=== PATIENT | female | born 1945 | race Caucasian/White ===

== ENCOUNTER 2017-05-27 08:45 | Outpatient (CLI) | payer OTHER, MEDICARE, SELFPAY | END 2017-05-27 09:55 | disposition home or self-care (01) | PROVIDERS: Visit Provider Nurse Practitioner | DX: N18.3 Chronic kidney disease, stage 3 (moderate) (principal) | CPT/HCPCS: 96372; J0885 ==

== ENCOUNTER 2017-06-24 12:24 | Outpatient (CLI) | payer OTHER, MEDICARE, SELFPAY ==
[2017-06-24 12:42] VITALS: BMI 22.6
[2017-06-24 13:34] LABS: Basophils % 0.3 % (0.1-2.0); Eosinophils # 0.1 K/mm3 (0.0-0.4); Eosinophils % 3.2 % (0.1-12.0); Hematocrit 33.2 % (37.0-47.0); Lymphocytes # 0.8 K/mm3 (0.7-4.5); Lymphocytes % 18.6 K/mm3 (10-50); Mean Corpuscular Hemoglobin 29.8 pg (27.0-31.2); Mean Corpuscular Volume 90.1 fl (81-99); Mean Platelet Volume 8.6 fl (7.4-10.4); Monocytes # 0.2 K/mm3 (0.1-1.0); Monocytes % 5.4 % (1.7-9.3); Neutrophils % 72.6 % (37.0-80.0); Platelet Count 225 K/mm3 (142-424); Red Blood Count 3.68 M/mm3 (4.20-5.40); Red Cell Distribution Width 13.2 % (11.5-17.5); White Blood Count 4.2 K/mm3 (4.8-10.8)
[2017-06-24 14:00] VITALS: BP 128/70; PULSE 66; RESP 20; TEMP 36.4; O2SAT 98
== END 2017-06-24 14:15 | disposition home or self-care (01) ==
PROVIDERS: Visit Provider Internal Medicine
DX: N18.3 Chronic kidney disease, stage 3 (moderate) (principal); D63.1 Anemia in chronic kidney disease
CPT/HCPCS: 85025; 96372; J0885

== ENCOUNTER → 2018-01-16 11:56 | Outpatient (CLI) | payer OTHER, MEDICARE, SELFPAY ==
--- NOTE | 2018-01-16 12:07 | XR_ITS ---
XR chest 2V HISTORY: Short of breath ITS.REASON: ASTHMA ORDERING PHYSICIAN: Artie Elias MD PATIENT AGE: 72 years Technique: PA and lateral chest COMPARISON: 12/28/2016 FINDINGS: ... Bilateral pleural effusions evident most evident on the left. Most generous blunting and meniscus is seen at the left CP angle, and obscuring the left hemidiaphragm. . Scant blunting right CP angle and posterior sulcus.Minimal fluid outlines fissures on the lateral view as well Mild basilar atelectasis most notable left base. No discrete focal pneumonia The mid and upper lung chanel are clear. Heart appears mildly enlarged. Mild cardiomegaly . Pulmonary vascularity appears normal to upper normal particularly on the right . regan and mediastinal structures satisfactory. Chest wall appears intact IMPRESSION:...... 1 Small Bilateral pleural effusions, pleural fluid most evident towards left base obscuring left hemidiaphragm . 2 Right basilar atelectasis left greater than right. 3. Mild cardiomegaly slight more evident than last year CXR.
== END ==
PROVIDERS: PCP Internal Medicine Adolescent Medicine; Visit Provider Internal Medicine Adolescent Medicine
DX: J45.20 Mild intermittent asthma, uncomplicated (principal)
CPT/HCPCS: 71046

== ENCOUNTER 2018-01-23 13:36 | Outpatient (CLI) | payer OTHER, MEDICARE, SELFPAY ==
[2018-01-23 14:17] LABS: Basophils % 0.4 % (0.1-2.0); Eosinophils # 0.1 K/mm3 (0.0-0.4); Eosinophils % 1.9 % (0.1-12.0); Hematocrit 30.8 % (37.0-47.0); Hemoglobin 10.2 g/dL (12.2-16.2); Lymphocytes # 0.7 K/mm3 (0.7-4.5); Lymphocytes % 15.7 K/mm3 (10-50); Mean Corpuscular HGB Conc 33.1 g/dL (31.8-35.4); Mean Corpuscular Volume 90.8 fl (81-99); Mean Platelet Volume 7.7 fl (7.4-10.4); Monocytes # 0.2 K/mm3 (0.1-1.0); Monocytes % 4.2 % (1.7-9.3); Neutrophils # 3.6 K/mm3 (1.8-7.8); Neutrophils % 77.8 % (37.0-80.0); Platelet Count 294 K/mm3 (142-424); Red Blood Count 3.39 M/mm3 (4.20-5.40); Red Cell Distribution Width 13.5 % (11.5-17.5); White Blood Count 4.6 K/mm3 (4.8-10.8)
[2018-01-23 15:16] LABS: Alanine Aminotransferase 19 U/L (12-78); Albumin/Globulin Ratio 0.7 (1.1-1.8); Alkaline Phosphatase 114 U/L (46-116); Anion Gap 15.2 mEq/L (5-15); Aspartate Amino Transferase 19 U/L (15-37); Bilirubin,Total 0.3 mg/dL (0.2-1.0); Blood Urea Nitrogen 15 mg/dL (7-18); Calcium 8.4 mg/dL (8.5-10.1); Carbon Dioxide 26 mmol/L (21.0-32.0); Chloride 100 mmol/L (98-107); Creatinine,Serum 1.28 mg/dL (0.55-1.02); Estimated Glomerular Filt Rate 41 ml/min (>60); GFR (African American) 50 ML/MIN (>60); Globulin 4.4 gm/dl (1.3-3.2); Glucose 165 mg/dL (74-106); Magnesium 1.7 mg/dL (1.4-2.2); Potassium 3.2 mmoL/L (3.5-5.1); Sodium 138 mmol/L (136-145); Total Protein,Serum 7.4 gm/dL (6.4-8.2)
[2018-01-23 16:11] VITALS: BP 152/60; PULSE 74; RESP 18; TEMP 36.6; O2SAT 100
[2018-01-23 16:41] VITALS: BP 149/64; PULSE 76; RESP 18; O2SAT 99
[2018-01-23 17:19] VITALS: BP 140/69; PULSE 79; RESP 18; O2SAT 99
== END 2018-01-23 17:23 | disposition home or self-care (01) ==
LOC: LAB 13:36 → INF 15:46
PROVIDERS: PCP Internal Medicine Adolescent Medicine; Visit Provider Nurse Practitioner Family
DX: R53.83 Other fatigue (principal); R53.81 Other malaise; E87.6 Hypokalemia
CPT/HCPCS: 36415; 80053; 83735; 85025; 96360

== ENCOUNTER → 2018-01-26 13:24 | Outpatient (CLI) | payer OTHER, MEDICARE, SELFPAY ==
[2018-01-26 14:11] LABS: Anion Gap 13.4 mEq/L (5-15); Blood Urea Nitrogen 18 mg/dL (7-18); Calcium 8.5 mg/dL (8.5-10.1); Carbon Dioxide 26 mmol/L (21.0-32.0); Chloride 101 mmol/L (98-107); Creatinine,Serum 1.17 mg/dL (0.55-1.02); Estimated Glomerular Filt Rate 46 ml/min (>60); GFR (African American) 55 ML/MIN (>60); Glucose 108 mg/dL (74-106); Potassium 3.4 mmoL/L (3.5-5.1); Sodium 137 mmol/L (136-145)
== END ==
PROVIDERS: PCP Nurse Practitioner Family; Visit Provider Nurse Practitioner Family
DX: R10.11 Right upper quadrant pain (principal)
CPT/HCPCS: 36415; 80048

== ENCOUNTER → 2018-03-08 12:50 | Outpatient (CLI) | payer OTHER, MEDICARE, SELFPAY ==
--- NOTE | 2018-03-08 12:53 | MR_ITS ---
MR angio neck wo con HISTORY: ITS.REASON: STROKE, TIA ORDERING PHYSICIAN: RANDALL Da Silva PATIENT AGE: 72 years Comparison: None TECHNIQUE: Delayed images obtained without contrast. There is a moderate degree of motion artifact which does decrease the quality of the exam. The carotids and vertebrals are patent. No significant stenotic lesions apparent. Vertebral arteries are patent and have an unremarkable appearance. IMPRESSION: No significant stenotic lesions apparent
--- NOTE | 2018-03-08 12:53 | MR_ITS ---
MR head/brain wo con HISTORY: Left-sided arm weakness, follow-up stroke, follow-up head CT of 02/16/2018 ITS.REASON: STROKE, TIA ORDERING PHYSICIAN: RANDALL Da Silva PATIENT AGE: 72 years Comparison: None TECHNIQUE: Standard multiplanar multiecho sequences are performed without contrast. FINDINGS: No midline shift, mass effect, intracranial hemorrhage, or hydrocephalus is evident. No evidence of acute infarction. There is atrophy with mild prominence of the ventricles consistent with brain volume loss. Old lacunar infarctions are present in the right thalamus, right basal ganglia, and left superior cerebellum. There are scattered periventricular and subcortical T2 white matter hyperintensities consistent with ischemic gliotic change from microangiopathy. These do not demonstrate restricted diffusion. The cerebellopontine angles, cerebellum, and brainstem are unremarkable. There are bilateral mastoid effusions. No sinus air-fluid level. The pituitary and optic chiasm have an unremarkable appearance. No cerebellar ectopia. IMPRESSION: 1. No acute finding. 2. Atrophy with chronic ischemic changes with old lacunar infarctions. No acute infarction apparent 3. Bilateral mastoid effusions
--- NOTE | 2018-03-08 12:53 | MR_ITS ---
MR angio head wo con HISTORY: Recent stroke, left-sided arm weakness ITS.REASON: STROKE, TIA ORDERING PHYSICIAN: RANDALL Da Silva PATIENT AGE: 72 years Comparison: None TECHNIQUE: 3-D [id number] images obtained without contrast. Multi slab images and mip reviewed FINDINGS: There is some minimal protrusion along the medial aspect of the cavernous portion of the left internal carotid artery suggesting a small aneurysm at this area probably due to a atheromatous aneurysm or even a ulcerated plaque. Similar finding is also noted involving the medial aspect of the cavernous portion of the right internal carotid artery. These areas measure approximately 2 mm. No other aneurysm, arteriovenous malformation, or major intracranial occlusive process apparent. Single shot MRV image shows no evidence of sagittal sinus thrombosis. There is mild degree of motion artifact which does somewhat obscure fine detail. IMPRESSION: 1. Small focal areas of protrusion involving the medial aspect of both cavernous portions of the internal carotid arteries suggesting small atheromatous aneurysms or ulcerations/ulcerative plaques. 2. Otherwise negative.
== END ==
PROVIDERS: Family Provider Internal Medicine Adolescent Medicine; PCP Nurse Practitioner Family; Visit Provider Physician Assistant
DX: I63.9 Cerebral infarction, unspecified (principal); G45.9 Transient cerebral ischemic attack, unspecified
CPT/HCPCS: 70544; 70547; 70551

== ENCOUNTER → 2018-03-15 09:43 | Outpatient (CLI) | payer OTHER, MEDICARE, SELFPAY ==
--- NOTE | 2018-03-15 09:46 | FL_ITS ---
MO upper GI small bowel Ordering Physician: Leroy Price MD Patient Age: 72 years: Female HISTORY: ITS.REASON: anemia HISTORY of bleeding ulcer 3 months abdominal pain. TECHNIQUE: Air-contrast UGI performed by Dr. Rodriguez. 3 minutes 10 seconds fluoroscopy time Followed bySmall bowel follow-throug COMPARISON : No recent relevant studies There is a May 2007 CT abdomen UPPER GI Cervical esophagus. Unremarkable. Normal swallowing. Upper thoracic esophagus unremarkable. With patient drinking in the right deep decubitus position, with Valsalva there is a small transient Sliding Hiatal Hernia observed & demonstrated under fluoroscopy. Otherwise the stomach appears overall satisfactory. Minimal rugal full pattern slightly smooth appearance the stomach proximal body. Likely normal but, conceivably could reflect atrophic gastritis.. There is a ovoid calcification to the left of the spine & projected chest above the mid stomach. This is a 16 mm round dense calcification involves ectatic and possibly a small aneurysmal dilated area of the splenic artery. This is seen just posterior posterior to the mid body of the stomach on multiple UGI images. It was seen on the as400 consultant film; and can be confirmed dense calcified area of dilated splenic artery on prior CT 2007. Other splenic artery calcifications are seen along the course of splenic artery continuing more peripherally. The splenic artery artery is more normal in caliber in these latter regions. The pylorus. Duodenum bulb appear normal. The duodenal bulb smooth & distensible with no ulcer niche or spasm Nor filling defect. Duodenal loop appears normal SMALL BOWEL FOLLOW-THROUGH is normal Small bowel is normal in caliber. Normal mucosal pattern. Terminal ileum appears satisfactory. No bowel dilatation. Or separation. ------- IMPRESSION 1. UGI Findings: ... Small transient sliding hiatal hernia. ..... No ulcer or lesion evident at stomach, pylorus nor duodenum .... Minimal rugal fold pattern, fairly smooth appearance proximal body stomach, is most likely normal. . Conceivably could reflect Atrophic gastritis but unlikely with overall appearance... 4....Small Bowel FollowThrough-Normal 5.... 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 This is seen in 2007 and is only slightly larger ...
== END ==
PROVIDERS: Family Provider Internal Medicine Adolescent Medicine; PCP Nurse Practitioner Family; Visit Provider Surgery
DX: D64.9 Anemia, unspecified (principal)
CPT/HCPCS: 74245

== ENCOUNTER 2018-09-29 15:10 | Inpatient (IN) ==
--- NOTE | 2018-09-29 15:20 | Emergency Department Note ---
ED Disposition Clinical Impression: Bandemia, Elevated troponin, Retroperitoneal mass Anemia Qualifiers: Anemia type: unspecified type Qualified Code(s): D64.9 - Anemia, unspecified Disposition: Admitted As Inpatient Condition on Discharge: Serious - Critical Care Critical Care Time: No Attestation: On 09/29/18, the high probability of a clinically significant, sudden or life threatening deterioration of the following system(s) required my full and direct attention, intervention and personal management. The time I documented below is in addition to time spent performing reported procedures but includes the following listed in this critical care notation. Medical Decision Making - Jalen Inquiry Pt receiving controlled substance: No Vital Signs: 09/29/18 15:10 09/29/18 15:47 09/29/18 17:24 Temperature 98.0 F Temperature Source Oral Pulse Rate [Right Brachial] 76 64 63 Respiratory Rate 18 Blood Pressure [Right Arm] 129/70 129/64 136/69 Blood Pressure Mean [Right Arm] 89 85 91 Blood Pressure Source [Right Arm] Automatic Cuff Blood Pressure Position [Right Arm] Sitting 02 Sat by Pulse Oximetry 99 98 100 Oxygen Delivery Method Room Air 09/29/18 18:00 Temperature Temperature Source Pulse Rate [Right Brachial] 60 Respiratory Rate Blood Pressure [Right Arm] 112/52 L Blood Pressure Mean [Right Arm] 72 Blood Pressure Source [Right Arm] Blood Pressure Position [Right Arm] 02 Sat by Pulse Oximetry 99 Oxygen Delivery Method - Lab Data Lab Results 09/29/18 15:14: Urine Color Yellow, Urine Appearance Clear, Urine pH 5.5, Ur Specific [place] 1.020, Urine Protein 2+, Urine Glucose (UA) Negative, Urine Ketones Negative, Urine Blood Negative, Urine Nitrate Negative, Urine Bilirubin Negative, Urine Urobilinogen 1.0, Ur Leukocyte Esterase 1+ A, Urine WBC 3-5, Urine Bacteria Trace 09/29/18 16:37: WBC 15.1 H, RBC 2.41 L, Hgb 6.9 L*, Hct 21.6 L*, MCV 89.5, MCH 28.5, MCHC 31.8, RDW 14.9, Plt Count 253, MPV 8.8, Neut % (Auto) 90.1 H, Lymph % (Auto) 5.1 L, Quay % (Auto) 4.6, Eos % (Auto) 0.0 L, Baso % (Auto) 0.1, Neut # (Auto) 13.6 H, Lymph # (Auto) 0.8, Quay # (Auto) 0.7, Eos # (Auto) 0.0, Baso # (Auto) 0.0, Total Counted 100, Neutrophils % (Manual) 67, Band Neutrophils % 29.0 H, Lymphocytes % (Manual) 3 L, Monocytes % (Manual) 1 L, Platelet Estimate Normal, RBC Morphology Normal 09/29/18 16:37: Sodium 132 L, Potassium 3.7, Chloride 100, Carbon Dioxide 24, Anion Gap 11.7, BUN 38 H, Creatinine 0.87, Estimated Creat Clear 37, Estimated GFR 64, Est GFR ( Amer) 78, Glucose 145 H, Calcium 8.3 L, Total Bilirubin 0.2, AST 31, ALT 14, Alkaline Phosphatase 196 H, Troponin I 0.10 H, Total Protein 6.3 L, Albumin 1.2 L, Globulin 5.1 H, Albumin/Globulin Ratio 0.2 L 09/29/18 16:37: Lipase 36 L, Digoxin 1.60 09/29/18 16:37: Lactate 1.0 09/29/18 17:10: Stool Occult Blood Negative Result diagrams: 09/29/18 16:37 09/29/18 16:37 Orders (Tests/Meds): ED MEDICATIONS Generic Name Dose Route Start Last Admin Trade Name Freq PRN Reason Stop Dose Admin Ertapenem 1 gm/ Sodium 50 mls @ 100 mls/hr 09/29/18 18:45 Chloride IV 10/13/18 18:44 Q24H JERILYN Protocol Sodium Chloride 1,000 mls @ 50 mls/hr 09/29/18 18:45 Sod Chlor 0.9% 1000ml Bag IV 10/29/18 18:44 .Q20H JERILYN ORDERS Category Date Time Status Urine Culture Stat Micro 09/29/18 15:14 Received - Radiology Data #1 Image(s): Chest Image Reviewed: Yes I have reviewed radiologist's interpretation Preliminary Findings: Normal/NAD - CT Data CT Scan: Head, Abdomen, Pelvis Time Received: 16:[address] Reviewed: Yes: I have viewed the radiologist's interpretation Findings Narrative: Head: Negative. Abdomen/Pelvis: IMPRESSION: 1. Small bilateral pleural effusions. 2. Left hydronephrosis and mild dilatation of the proximal left ureter. No ureteral calculus evident. This could be related to prior obstruction. 3. There is a retroperitoneal soft tissue mass measuring 5.9 x 3.3 x 6.5 cm consistent with adenopathy. This is displacing the abdominal aorta anteriorly.. This is slightly eccentric toward the left and glands imperceptibly with the psoas muscle anteriorly on the left. A contained retroperitoneal hemorrhage or aortic aneurysm is felt to be less likely. Certainly, a repeat study with IV contrast would the knee dated if biopsy is contemplated 4. Moderate wedge compression changes of T11 age indeterminate Dictated By: Micha Cox MD Signed By: <Electronically signed by Micha Cox MD in OV> 09/29/18 [id number] - ECG Data Tracing #1 EKG interpreted by Hunter Ley MD: Rhythm: sinus Rate: 64 Lyle: normal Ectopy: none Conduction: Nonspecific intraventricular conduction delay ST Segment Changes: Nonspecific T Wave Changes: Nonspecific Q Waves: none Prior electrocardiagrams reviewed. No change from prior tracings. - Physician Consults Physician Consulted: Austin Elias Time: 18:30 Reason -: Admission Comment/Response: Agrees to admit the patient to the hospital. We discussed the patient's clinical information, including history, exam, laboratory and radiology results and ED course. Per hospital procedure, I will write temporary bridge inpatient orders on the patient. Specific orders requested by the admitting physician: Transfuse 2 units packed red blood cells, normal saline at 50 cc/h, Invanz Medical Decision Narrative: Records reviewed. Seen by me 06/06/2018 for stroke symptoms. Treated with TPA and transferred to [facility]. Eventually ultimately diagnosed as seizure rather than stroke. Also had a fever while in the hospital. Records indicate that she refused lumbar puncture, but family says that lumbar puncture was attempted twice. She was eventually discharged to home. Family states she was admitted to [facility] after that after being seen here in a physician's office and being diagnosed with atrial fibrillation. Family says that she also had a lumbar puncture performed while at [facility] that was normal. She was started on digoxin. She was also started on Aricept while in [place] for possible early Alzheimer's disease. Family feels that she has declined since starting these medications. 5:15 PM: Discussed patient's anemia with family. She has a history of anemia, had to have a blood transfusion once about 6 to 7 months ago. Has had a work-up including upper and lower endoscopy in approximately February of last year. No cause for anemia was found. On review of records from the [facility] on the portal, she was seen to have anemia when she was in the hospital there with a hemoglobin in the sevens. She also had an elevated troponin but it did not rise further on her serial enzymes. Also noted that she was treated with vancomycin and meropenem for suspected infection and apparently tolerated these antibiotics well. General Adult HPI - General Chief complaint: Weakness Stated complaint: failure to thrive Time Seen by Provider: 09/29/18 15:20 Mode of Arrival: EMS Limitations: No Limitations Description of Symptoms (Recalled from ER Triage Doc. by RN): failure to thrive per family statement to ems; pt is poor historian , no family present - History of Present Illness HPI narrative: Brought in by ambulance. Reported altered mental status. Initially family is not here and patient is unable to give history. However, family arrived during my evaluation. They state that the patient was released from [facility] in [place] 3 days ago. She had been there for rehabilitation after being hospitalized at [facility], where she had been sent for atrial fibrillation. They state that the entire time she was at [facility] she would not eat by herself and was weak and losing weight. When she arrived home 3 days ago, the first day she did well, was up walking with a walker with assistance. Yesterday she more or less laid around, but was eating. Today she would not eat, would open her eyes, but would not verbally respond. She was supposed to have a doctor's visit with Dr. Elias today at [facility], but there was no way they could get her there, so they called the office and they were instructed to have her brought to the emergency room. Family also reports that she fell 3 times while she was in [place]. She is complained of pain in her lower abdominal and pelvic area since then. - Related Data Home Medications Medication Instructions Recorded Confirmed cholecalciferol (vitamin D3) 1,000 1,000 unit PO ONCE 06/06/17 09/29/18 unit capsule Aspirin [Aspirin 81mg EC Tab] 81 mg PO DAILY 01/23/18 09/29/18 potassium chloride ER 20 mEq 20 meq PO DAILY 02/01/18 09/29/18 tablet,extended release(part/cryst) carvedilol 25 mg tablet 12.5 mg PO BID 03/22/18 09/29/18 Atorvastatin Calcium [Atorvastatin 40 mg PO DAILY 06/25/18 09/29/18 40mg Tab] Multivitamin [Multi-Day Vitamins] 1 each PO DAILY 06/25/18 09/29/18 levETIRAcetam [Keppra Xr] 750 mg PO BID 06/25/18 09/29/18 Allergies Allergy/AdvReac Type Severity Reaction Status Date / Time valsartan Allergy Severe Difficulty Verified 03/22/18 13:43 Breathing acyclovir [ACYCLOVIR] Allergy Unknown Verified 03/22/18 13:43 aliskiren [From TEKTURNA] Allergy Unknown Verified 03/22/18 13:43 amlodipine [From NORVASC] Allergy Unknown Verified 03/22/18 13:43 amoxicillin [AMOXICILLIN] Allergy Unknown Verified 03/22/18 13:43 aspirin [ASPIRIN] Allergy Unknown Verified 03/22/18 13:43 azithromycin [From ZITHROMAX] Allergy Unknown Verified 03/22/18 13:43 ceftriaxone [From ROCEPHIN] Allergy Unknown Verified 03/22/18 13:43 cephalexin [CEPHALEXIN] Allergy Unknown Verified 03/22/18 13:43 codeine [CODEINE] Allergy Unknown Verified 03/22/18 13:43 doxycycline [DOXYCYCLINE] Allergy Unknown Verified 03/22/18 13:43 escitalopram [From LEXAPRO] Allergy Unknown Verified 03/22/18 13:43 gemifloxacin [From FACTIVE] Allergy Unknown Verified 03/22/18 13:43 isradipine [From DYNACIRC] Allergy Unknown Verified 03/22/18 13:43 levofloxacin [From LEVAQUIN] Allergy Unknown Verified 03/22/18 13:43 lisinopril [LISINOPRIL] Allergy Unknown Verified 03/22/18 13:43 nebivolol [From BYSTOLIC] Allergy Unknown Verified 03/22/18 13:43 olmesartan [From BENICAR] Allergy Unknown Verified 03/22/18 13:43 Penicillins [PENICILLINS] Allergy Unknown Verified 03/22/18 13:43 pentazocine Allergy Unknown Verified 03/22/18 13:43 [From [employer]WIN [employer]] ramipril [From ALTACE] Allergy Unknown Verified 03/22/18 13:43 simvastatin [SIMVASTATIN] Allergy Unknown Verified 03/22/18 13:43 sulfamethoxazole Allergy Unknown Verified 03/22/18 13:43 [From SEPTRA] trimethoprim [From SEPTRA] Allergy Unknown Verified 03/22/18 13:43 verapamil [From VERELAN] Allergy Unknown Verified 03/22/18 13:43 zolmitriptan [From ZOMIG] Allergy Unknown Verified 03/22/18 13:43 atorvastatin [ATORVASTATIN] AdvReac Unknown MYALGIA Verified 03/22/18 13:43 ALLEREX DF Allergy Intermediate I-HIVES Uncoded 03/22/18 13:43 [facility] History - Hepatitis A Screen Drug use history?: No High risk sexual behaviors?: No History of sexually transmitted infection?: No Currently employed?: No Childcare worker?: No Do you have indoor plumbing?: Yes Do you have electricity?: Yes Attestation statement:: This patient has been screened for Hepatitis A risk factors. I have reviewed the patient's past medical history: Yes Medical History: Reports:: Asthma, Congestive Heart Failure, Coronary Artery Disease, Hypertension, Lung Disease, Myocardial Infarction, Transient Ischemic Attacks (TIA) Denies:: Anxiety, Cancer, Depression, Diabetes Mellitus Type 1, Diabetes Mellitus Type 2, Internal Pacemaker, MRSA, Seizures Other Medical History: Reports: Anemia, Arthritis Other Surgeries: Yes: Coronary Stent, Diagnostic Lap, EGD, Hysterectomy-Total, Tubal Ligation, Other. No: Pacemaker Amputation: No Fractures: No - Social History Educational Level: Completed High School Smoking Status: Unknown if ever smoked Alcohol Intake: never Alcohol Intake Frequency:: other Substance Use Type: denies use Occupational Status: employed Housing: house Household Members: none - Psychiatric History Expresses thoughts of harming self/others: None Suicide Plan Description: No Plan Pschychiatric History:: Denies:: Anxiety, Attention Deficit Disorder, Bipolar Disorder, Depression, Eating Disorder, Post Traumatic Stress Disorder, Suicide Attempt, Psychiatric Treatment, Schizophrenia Family Hx:: Hypertension, Heart Attack ROS Obtained: Yes unobtainable due to mental status Physical Exam - General General appearance: other (Lays with eyes closed, but opens eyes when spoken to. Mouths a few words in response to questions. Follows commands.) - Head Head exam: atraumatic, normocephalic - Eye Eye exam: Present: normal appearance, PERRL, EOMI - ENT ENT exam: Present: mucous membranes moist - Neck Neck exam: Present: normal inspection, trachea midline. Absent: meningismus - Chest Chest inspection: Present: normal inspection, symmetric chest wall rise - Respiratory Respiratory exam: Present: normal lung sounds bilaterally. Absent: respiratory distress - Cardiovascular Cardiovascular exam: Present: regular rate, normal rhythm, normal heart sounds - Abdominal Exam Abdominal exam: Present: soft, tenderness. Absent: distention, guarding Abdominal tenderness: Present: diffuse - Rectal Exam Rectal exam: Present: normal inspection, normal rectal tone. Absent: black stoo l, bloody stool, fecal impaction, mass - Extremities Exam Extremities exam: Present: normal inspection, full ROM - Neurological Exam Neurological exam: Present: CN II-XII intact. Absent: motor sensory deficit - Psychiatric Psychiatric exam: Present: flat affect - Skin Skin exam: Present: warm, dry
[2018-09-29 15:42] LABS: Microscopic, Urine URINE MICROSCOPIC (MICROSCOPIC)
[2018-09-29 15:45] LABS: Appearance,Urine CLEAR (Clear); Bilirubin,Urine Negative (Negative); Blood, Urine Negative (Negative); Color,Urine YELLOW (Yellow); Glucose,Urine (UA) Negative (Negative); Ketones,Urine Negative (Negative); Leukocyte Esterase,Urine 1+ (Negative); PH,Urine 5.5 (5.0-8.5); Protein,Urine 2+ (Negative)
[2018-09-29 16:02] LABS: Bacteria,Urine Trace /lpf
[2018-09-29 17:03] LABS: Basophils % 0.1 % (0.1-2.0); Lymphocytes # 0.8 K/mm3 (0.7-4.5); Lymphocytes % 5.1 % (10-50); Mean Corpuscular HGB Conc 31.8 g/dL (31.8-35.4); Mean Corpuscular Hemoglobin 28.5 pg (27.0-31.2); Mean Corpuscular Volume 89.5 fl (81-99); Mean Platelet Volume 8.8 fl (7.4-10.4); Monocytes # 0.7 K/mm3 (0.1-1.0); Monocytes % 4.6 % (1.7-9.3); Neutrophils # 13.6 K/mm3 (1.8-7.8); Neutrophils % 90.1 % (37.0-80.0); Platelet Count 253 K/mm3 (142-424); Red Blood Count 2.41 M/mm3 (4.20-5.40); Red Cell Distribution Width 14.9 % (11.5-17.5); White Blood Count 15.1 K/mm3 (4.8-10.8)
[2018-09-29 17:07] LABS: Hematocrit 21.6 % (37.0-47.0); Hemoglobin 6.9 g/dL (12.2-16.2)
[2018-09-29 17:18] LABS: Lymphocytes % 3 % (10-50); Monocytes % 1 % (2-9); Neutrophils % 67 % (42-76); RBC Morphology Normal; Total Cells Counted 100
[2018-09-29 17:20] LABS: Albumin Level 1.2 gm/dL (3.4-5.0); Albumin/Globulin Ratio 0.2 (1.1-1.8); Anion Gap 11.7 mEq/L (5-15); Bilirubin,Total 0.2 mg/dL (0.2-1.0); Calcium 8.3 mg/dL (8.5-10.1); Globulin 5.1 gm/dl (1.3-3.2); Potassium 3.7 mmoL/L (3.5-5.1); Total Protein,Serum 6.3 gm/dL (6.4-8.2)
[2018-09-29 17:26] LABS: Digoxin 1.6 ng/mL (0.90-2.00)
[2018-09-29 23:54] LABS: ABG Base Excess -7.5 mmol/L (-2.4-2.3); ABG Oxygen Saturation 99 % (90-100); ABG PH 7.54 mmol/L (7.35-7.45); ABG PO2 349.4 mmhg (80-100); ABG TCO2 15.6 mmhg (23-27); Oxygen 100% NRB %
[2018-09-29 23:55] LABS: ABG PCO2 17.9 mmhg (35.0-45.0)
[2018-09-30 00:06] LABS: Basophils % 0.1 % (0.1-2.0); Eosinophils % 0.1 % (0.1-12.0); Lymphocytes # 2.1 K/mm3 (0.7-4.5); Lymphocytes % 10.6 % (10-50); Mean Corpuscular HGB Conc 32.1 g/dL (31.8-35.4); Mean Corpuscular Hemoglobin 28.2 pg (27.0-31.2); Mean Corpuscular Volume 87.7 fl (81-99); Mean Platelet Volume 8.3 fl (7.4-10.4); Monocytes # 0.7 K/mm3 (0.1-1.0); Monocytes % 3.3 % (1.7-9.3); Neutrophils # 16.9 K/mm3 (1.8-7.8); Neutrophils % 85.9 % (37.0-80.0); Platelet Count 254 K/mm3 (142-424); Red Blood Count 2.92 M/mm3 (4.20-5.40); Red Cell Distribution Width 16.6 % (11.5-17.5); White Blood Count 19.7 K/mm3 (4.8-10.8)
[2018-09-30 00:08] LABS: Hematocrit 25.6 % (37.0-47.0); Hemoglobin 8.2 g/dL (12.2-16.2)
[2018-09-30 00:09] LABS: Anion Gap 15.5 mEq/L (5-15); Calcium 8.3 mg/dL (8.5-10.1); Potassium 4.5 mmoL/L (3.5-5.1)
[2018-09-30 01:32] LABS: ABG Base Excess -14.8 mmol/L (-2.4-2.3); ABG HCO3 9.7 mmhg (22.0-26.0); ABG Oxygen Saturation 99 % (90-100); ABG PH 7.42 mmol/L (7.35-7.45); ABG PO2 168.6 mmhg (80-100); ABG TCO2 10.2 mmhg (23-27)
[2018-09-30 01:40] LABS: Oxygen 35% VENI MASK %
[2018-09-30 01:41] LABS: ABG PCO2 15.5 mmhg (35.0-45.0)
--- NOTE | 2018-09-30 01:46 | History & Physical Report ---
*Admission Date: 09/29/18 *Chief complaint: Weakness *History of present illness: 72-year-old female with history of strokes, congestive heart failure, atrial fibrillation was brought to the emergency department by family on the evening of September 29 due to gradual functional decline over the preceding 48 hours. Patient had recently returned home from a 3-week stay at [facility] after a one-week hospital stay at [facility]. Patient returned home September 27 and daughter reports that over the following 2 days patient's physical status gradually declined to the point where she had difficulty communicating, was very weak and had no appetite. The daughter contacted Dr. Lyle's office who recommended the patient go to [facility] where she had recently been hospitalized. However, the family was unable to physically move the patient so EMS was called and the patient was brought to [facility]. In the emergency department patient was found to have an elevated white blood cell count with bandemia. Urine was mildly abnormal. Patient had not had any signs of infection such as fevers, chills, cough. Patient was also found to be anemic with a hemoglobin of 6.9. Decision was made to admit the patient for transfusion of packed red blood cells, and IV antibiotics. Patient was admitted and started on Invanz intravenously. She received a unit of packed red blood cells. In between units of packed red blood cells when patient was being given a dose of Lasix due to basilar crackles that had developed patient became nonresponsive. A rapid response read was called. Patient had developed agonal breathing he would not respond to tactile or verbal stimulus or commands. She became hypotensive. Patient was started on Levophed and large-volume fluids. Over the course of approximately 45 minutes the patient's blood pressure channing, breathing became more comfortable, and patient seemed to become a little more alert although remained noncommunicative. Family was at now at bedside. The patient's daughter gave me additional information a bout the patient's health over the last 6 months. She has been admitted at the [facility] on at least 2 occasions for strokelike symptoms. I have reviewed ER notes from this hospital associated with those transfers. Apparently during 1 of the hospitalizations at the [facility] it was felt like she may be having "silent seizures" as opposed to strokes. She was started on Keppra and the patient is apparently been weaned from Keppra over these last few months. However, during the recent hospitalization at [facility] the daughter states that they were told that the patient has not been having seizures but is likely having frequent and recurrent TIAs. Patient has known atrial fibrillation for which she takes aspirin. Apparently the patient and her family have been told she is in need of a pacemaker but was not considered stable enough or strong enough to go through with the procedure. The patient takes carvedilol regularly, clonidine with parameters, and digoxin has been added on to her regimen. Patient's unit aid is Dr. Alonzo [facility] History I have reviewed the patient's past medical history: Yes Medical History: Reports:: Asthma, Congestive Heart Failure, Coronary Artery Disease, Hypertension, Lung Disease, Myocardial Infarction, Transient Ischemic Attacks (TIA) Denies:: Anxiety, Cancer, Depression, Diabetes Mellitus Type 1, Diabetes Mellitus Type 2, MRSA, Seizures *Have you ever received a pneumonia vaccine?: Yes *Have you received a flu vaccine this season?: Yes Other Medical History: Reports: Anemia, Arthritis, Cataracts Laterality Cases: Bilateral: Cataract Other Surgeries: Yes: Cardiac Catheterization, Cardiac Surgery, Cholecystectomy, Colonoscopy, Coronary Stent, Diagnostic Lap, EGD, Hysterectomy-Total, Pacemaker, Tubal Ligation, Other Amputation: No Fractures: No - *Social History Educational Level: Completed High School Smoking Status: Unknown if ever smoked Alcohol Intake: never Alcohol Intake Frequency:: other Substance Use Type: denies use *Occupational Status:: retired Housing: house Household Members: none *Travel in the last 8 weeks: None - Psychiatric History Expresses thoughts of harming self/others: None Suicide Plan Description: No Plan Pschychiatric History:: Denies:: Anxiety, Attention Deficit Disorder, Bipolar Disorder, Depression, Eating Disorder, Post Traumatic Stress Disorder, Suicide Attempt, Psychiatric Treatment, Schizophrenia Family Hx:: Asthma, Cancer, Heart Attack, Hypertension, Stroke Review of Systems - Review of Systems Review of systems:: unable to obtain Meds Home Medications Medication Instructions Recorded Confirmed Type cholecalciferol (vitamin D3) 1,000 1,000 unit PO ONCE 06/06/17 09/29/18 History unit capsule Aspirin [Aspirin 81mg EC Tab] 81 mg PO DAILY 01/23/18 09/29/18 History potassium chloride ER 20 mEq 20 meq PO DAILY 02/01/18 09/29/18 History tablet,extended release(part/cryst) carvedilol 25 mg tablet 12.5 mg PO BID 03/22/18 09/29/18 History Multivitamin [Multi-Day Vitamins] 1 each PO DAILY 06/25/18 09/29/18 History levETIRAcetam [Keppra Xr] 750 mg PO BID 06/25/18 09/29/18 History Allergies Allergy/AdvReac Type Severity Reaction Status Date / Time valsartan Allergy Severe Difficulty Verified 03/22/18 13:43 Breathing acyclovir [ACYCLOVIR] Allergy Unknown Verified 03/22/18 13:43 aliskiren [From TEKTURNA] Allergy Unknown Verified 03/22/18 13:43 amlodipine [From NORVASC] Allergy Unknown Verified 03/22/18 13:43 amoxicillin [AMOXICILLIN] Allergy Unknown Verified 03/22/18 13:43 aspirin [ASPIRIN] Allergy Unknown Verified 03/22/18 13:43 azithromycin [From ZITHROMAX] Allergy Unknown Verified 03/22/18 13:43 ceftriaxone [From ROCEPHIN] Allergy Unknown Verified 03/22/18 13:43 cephalexin [CEPHALEXIN] Allergy Unknown Verified 03/22/18 13:43 codeine [CODEINE] Allergy Unknown Verified 03/22/18 13:43 doxycycline [DOXYCYCLINE] Allergy Unknown Verified 03/22/18 13:43 escitalopram [From LEXAPRO] Allergy Unknown Verified 03/22/18 13:43 gemifloxacin [From FACTIVE] Allergy Unknown Verified 03/22/18 13:43 isradipine [From DYNACIRC] Allergy Unknown Verified 03/22/18 13:43 levofloxacin [From LEVAQUIN] Allergy Unknown Verified 03/22/18 13:43 lisinopril [LISINOPRIL] Allergy Unknown Verified 03/22/18 13:43 nebivolol [From BYSTOLIC] Allergy Unknown Verified 03/22/18 13:43 olmesartan [From BENICAR] Allergy Unknown Verified 03/22/18 13:43 Penicillins [PENICILLINS] Allergy Unknown Verified 03/22/18 13:43 pentazocine Allergy Unknown Verified 03/22/18 13:43 [From TALWIN [employer]OUND] ramipril [From ALTACE] Allergy Unknown Verified 03/22/18 13:43 simvastatin [SIMVASTATIN] Allergy Unknown Verified 03/22/18 13:43 sulfamethoxazole Allergy Unknown Verified 03/22/18 13:43 [From SEPTRA] trimethoprim [From SEPTRA] Allergy Unknown Verified 03/22/18 13:43 verapamil [From VERELAN] Allergy Unknown Verified 03/22/18 13:43 zolmitriptan [From ZOMIG] Allergy Unknown Verified 03/22/18 13:43 atorvastatin [ATORVASTATIN] AdvReac Unknown MYALGIA Verified 03/22/18 13:43 ALLEREX DF Allergy Intermediate I-HIVES Uncoded 03/22/18 13:43 Exam Vital signs and Labs for Last 24 Hours: Temp Pulse Resp BP Pulse Ox 98.5 F 68 16 126/70 98 09/29/18 21:05 09/29/18 21:05 09/29/18 21:05 09/29/18 21:05 09/29/18 21:05 Laboratory Results - last 24 hr 09/29/18 15:14: Urine Color Yellow, Urine Appearance Clear, Urine pH 5.5, Ur Specific [place] 1.020, Urine Protein 2+, Urine Glucose (UA) Negative, Urine Ketones Negative, Urine Blood Negative, Urine Nitrate Negative, Urine Bilirubin Negative, Urine Urobilinogen 1.0, Ur Leukocyte Esterase 1+ A, Urine WBC 3-5, Urine Bacteria Trace 09/29/18 16:37: WBC 15.1 H, RBC 2.41 L, Hgb 6.9 L*, Hct 21.6 L*, MCV 89.5, MCH 28.5, MCHC 31.8, RDW 14.9, Plt Count 253, MPV 8.8, Neut % (Auto) 90.1 H, Lymph % (Auto) 5.1 L, [place] % (Auto) 4.6, Eos % (Auto) 0.0 L, Baso % (Auto) 0.1, Neut # (Auto) 13.6 H, Lymph # (Auto) 0.8, [place] # (Auto) 0.7, Eos # (Auto) 0.0, Baso # (Auto) 0.0, Total Counted 100, Neutrophils % (Manual) 67, Band Neutrophils % 29.0 H, Lymphocytes % (Manual) 3 L, Monocytes % (Manual) 1 L, Platelet Estimate Normal, RBC Morphology Normal 09/29/18 16:37: Sodium 132 L, Potassium 3.7, Chloride 100, Carbon Dioxide 24, Anion Gap 11.7, BUN 38 H, Creatinine 0.87, Estimated Creat Clear 37, Estimated GFR 64, Est GFR ( Amer) 78, Glucose 145 H, Calcium 8.3 L, Total Bilirubin 0.2, AST 31, ALT 14, Alkaline Phosphatase 196 H, Troponin I 0.10 H, Total Protein 6.3 L, Albumin 1.2 L, Globulin 5.1 H, Albumin/Globulin Ratio 0.2 L 09/29/18 16:37: Lipase 36 L, Digoxin 1.60 09/29/18 16:37: Lactate 1.0 09/29/18 17:10: Stool Occult Blood Negative 09/29/18 18:48: Blood Type O Positive, Antibody Screen Negative, Crossmatch ([facility]) See Detail 09/29/18 18:50: Blood Type Confirm O Positive 09/29/18 22:10: Troponin I 0.08 H 09/29/18 23:52: Specimen Source Right femoral, O2 % 100% nrb, ABG pH 7.54 H, ABG pCO2 17.9 L, ABG pO2 349.4 H, ABG HCO3 15.0 L, ABG Total CO2 15.6 L, ABG O2 Saturation 99, ABG Base Excess -7.5 L 09/29/18 23:52: WBC 19.7 H D, RBC 2.92 L, Hgb 8.2 L D, Hct 25.6 L, MCV 87.7, MCH 28.2, MCHC 32.1, RDW 16.6, Plt Count 254, MPV 8.3, Neut % (Auto) 85.9 H, Lymph % (Auto) 10.6, [place] % (Auto) 3.3, Eos % (Auto) 0.1, Baso % (Auto) 0.1, Neut # (Auto) 16.9 H, Lymph # (Auto) 2.1, [place] # (Auto) 0.7, Eos # (Auto) 0.0, Baso # (Auto) 0.0 09/29/18 23:52: Sodium 132 L, Potassium 4.5 D, Chloride 100, Carbon Dioxide 21, Anion Gap 15.5 H, BUN 42 H, Creatinine 1.15 H D, Estimated Creat Clear 27, Estimated GFR 47 L, Est GFR ( Amer) 56 L D, Glucose 158 H, Calcium 8.3 L 09/29/18 23:52: Troponin I 0.08 H I & O for Last 24 hours: Intake & Output 09/27/18 09/28/18 09/29/18 09/30/18 11:59 11:59 11:59 11:59 Intake Total 0 / 0 Balance 0 / 0 Weight 85 lb 8 oz Narrative: Patient is lying supine in bed. She has increased respirations. Pupils are reactive to light. During initial examination patient withdrew from exam and I had difficulty trying to open her eyes to check pupillary reflexes. Oropharynx is dry. Ventimask is in place. Neck is without lymphadenopathy. Lungs sound clear. Heart has a regular rate and rhythm. Abdomen is soft. Neurologic exam: Cranial nerves could not be tested in patient's current state. 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 She was witnessed moving all extremities. She did withdrawal from tactile stimulus. During evaluation patient's blood pressure dropped. During this episode Patient had a fixed gaze to the right. She can no longer follow commands. Rhythmic movement of the right leg was noted which the daughter interpreted as the patient wanting her catheter out. Assessment and Plan (1) Anemia Status: Acute Qualifiers: Anemia type: unspecified type Qualified Code(s): D64.9 - Anemia, unspecified Category: Medical Code(s): D64.9 - Anemia, unspecified (2) CVA (cerebral vascular accident) Status: Acute Qualifiers: CVA mechanism: unspecified Qualified Code(s): I63.9 - Cerebral infarction, unspecified Category: Medical Code(s): I63.9 - Cerebral infarction, unspecified (3) Seizure disorder Status: Suspected Category: Medical Code(s): G40.909 - Epilepsy, unspecified, not intractable, without status epilepticus (4) History of atrial fibrillation Status: Acute Category: Medical Code(s): Z86.79 - Personal history of other diseases of the circulatory system (5) Bandemia Status: Acute Category: Medical Code(s): D72.825 - Bandemia (6) Altered mental status Status: Acute Category: Medical Code(s): R41.82 - Altered mental status, unspecified (7) CAD (coronary artery disease) Status: Acute Category: Medical Code(s): I25.10 - Atherosclerotic heart disease of [place] coronary artery without angina pectoris (8) Carotid artery disease Status: Acute Category: Medical Code(s): I77.9 - Disorder of arteries and arterioles, unspecified - Assessment and plan all Dx Assessment and Plan for all problems:: Patient has been stabilized on Ventimask and is receiving Levophed as a pressor. She will receive 1 g of Keppra IV. If necessary Neal-Synephrine will be added on his additional pressor. Patient's daughter reports a history of CHF so volume overload is a concern but at present patient is receiving fluid boluses which are maintaining blood pressure. We will try to wean fluids if blood pressure tolerates.
[2018-09-30 06:22] LABS: Basophils % 0.2 % (0.1-2.0); Lymphocytes # 1.7 K/mm3 (0.7-4.5); Lymphocytes % 10.1 % (10-50); Mean Corpuscular HGB Conc 30.7 g/dL (31.8-35.4); Mean Corpuscular Hemoglobin 27.6 pg (27.0-31.2); Mean Platelet Volume 8.5 fl (7.4-10.4); Monocytes # 1.1 K/mm3 (0.1-1.0); Monocytes % 6.6 % (1.7-9.3); Neutrophils # 13.8 K/mm3 (1.8-7.8); Platelet Count 169 K/mm3 (142-424); Red Blood Count 1.53 M/mm3 (4.20-5.40); Red Cell Distribution Width 17.4 % (11.5-17.5); White Blood Count 16.6 K/mm3 (4.8-10.8)
[2018-09-30 06:35] LABS: Hematocrit 13.8 % (37.0-47.0)
[2018-09-30 08:34] LABS: Lymphocytes % 4 % (10-50); Neutrophils % 95 % (42-76); Total Cells Counted 100
[2018-09-30 08:35] LABS: Hypochromasia 2+
[2018-09-30 08:53] LABS: Hemoglobin 4.2 g/dL (12.2-16.2)
--- NOTE | 2018-10-02 14:16 | Death Note ---
Discharge Sum: Prov - Provider Primary care physician: Artie Elias MD Admitting clinician: Artie Avila Attending physician on admission: Kel Mendoza Pronouncing clinician: Yvon Damico Discharge Sum: Diag - PCOD Cause of : Cardiac arrest (secondary to septic shock) Discharge Sum: Summary - Date and Time Date of admission: 09/29/18 19:58 Date of : 09/30/18 Time of : 11:05 - Summary Details: Per H&P: "72-year-old female with history of strokes, congestive heart failure, atrial fibrillation was brought to the emergency department by family on the evening of September 29 due to gradual functional decline over the preceding 48 hours. Patient had recently returned home from a 3-week stay at the [facility] after a one-week hospital stay at [facility]. Patient returned home September 27 and daughter reports that over the following 2 days patient's physical status gradually declined to the point where she had difficulty communicating, was very weak and had no appetite. The daughter contacted Dr. Elias's office who recommended the patient go to [facility] where she had recently been hospitalized. However, the family was unable to physically move the patient so EMS was called and the patient was brought to [facility]. In the emergency department patient was found to have an elevated white blood cell count with bandemia. Urine was mildly abnormal. Patient had not had any signs of infection such as fevers, chills, cough. Patient was also found to be anemic with a hemoglobin of 6.9. Decision was made to admit the patient for transfusion of packed red blood cells, and IV antibiotics. "Patient was admitted and started on Invanz intravenously. She received a unit of packed red blood cells. In between units of packed red blood cells when patient was being given a dose of Lasix due to basilar crackles that had developed patient became nonresponsive. A rapid response read was called. Patient had developed agonal breathing he would not respond to tactile or verbal stimulus or commands. She became hypotensive. Patient was started on Levophed and large-volume fluids. Over the course of approximately 45 minutes the patient's blood pressure channing, breathing became more comfortable, and patient seemed to become a little more alert although remained noncommunicative. Family was at now at bedside. The patient's daughter gave me additional information about the patient's health over the last 6 months. [facility]. I have reviewed ER notes from this hospital associated with those transfers. Apparently during [facility] it was felt like she may be having "silent seizures" as opposed to strokes. She was started on Keppra and the patient is apparently been weaned from Keppra over these last few months. However, during the recent hospitalization at [facility] the daughter states that they were told that the patient has not been having seizures but is likely having frequent and recurrent TIAs. Patient has known atrial fibrillation for which she takes aspirin. Apparently the patient and her family have been told she is in need of a pacemaker but was not considered stable enough or strong enough to go through with the procedure. The patient takes carvedilol regularly, clonidine with parameters, and digoxin has been added on to her regimen. Patient's physician intensivist is Dr. Alonzo." After initial stabilization, patient proceeded to decline further. Was started on second vasopressor. Both were titrated to max dose. He continued to be hypotensive. Patient was unresponsive to external stimuli. Around this time her blood cultures returned positive given concern for septic shock. Family was made aware of the grave status of Ms. Kelly and decided that it would be her wish to not escalate any further. Decision was made to transition toward comfort measures, not administer antibiotics beyond what had already been received, not place any further lines such as a central line to provide large- volume fluids, vasopressors, obtain labs, and hold at current level of support for her septic shock. They wanted to wait for family to be at bedside as they understood stopping current medications would lead to imminent . Through shared decision making, level of care was continued. After family arrived at bedside, decision was made to stop vasopressors. Patient peacefully shortly thereafter. was pronounced by the ER physician who was in-house at the time. Patient and case were referred to corner due to less than 24 hours since time of admission. - Additional Data Confirmation of as documented by pronouncing clinician: no pulse, no respirations, no heart sounds, pupils fixed and dilated Family: at bedside Attending/PCP notified?: Yes Attending physician: Artie Elias MD Was code activated?: No flat examiner notified?: Yes Organ bank notified?: Yes Hospice patient?: No
== END 2018-09-30 12:39 | disposition expired | DRG 871 ==
LOC: ER 15:10 → 2ND 18:44
PROVIDERS: ADMIT Family Medicine; ATTEND Internal Medicine Adolescent Medicine
CPT/HCPCS: 36415; 70450; 71010; 71045; 74176; 80048; 80053; 80162; 81001; 82272; 82803; 82962; 83605; 83690; 84484; 85007; 85025; 86850; 87040; 87077; 87086; 87088; 87186; 93005; 94761; 96365; 99285; G0328; J1335; J1953; P9016